=== PATIENT | male | born 1955 | race Caucasian/White ===

== ENCOUNTER 2020-12-28 07:03 | Emergency (ER) | payer BC, MEDICARE ==
[~2020-12-28] VITALS: Ht 182.9 cm; Wt 100.0 kg
[~2020-12-28 07:03] MED LIST: ATOR20TA PO; GLIM4TAB PO; INSU300I3 SQ; METO50TA6 PO; OXYC1TAB15 PO; SERT100T PO; VALS160T3 PO
--- NOTE | 2020-12-28 07:30 | PHYS DOC ---
Past Medical History Past Medical History: Diabetes-Type II, High Cholesterol, Hypertension Past Surgical History: No Surgical History Smoking Status: Former Smoker Alcohol Use: None General Adult EDM: Chief Complaint: RAPID HEART RATE HPI: HPI: Patient is a 65 year old male with past medical history hyperlipidemia hypertension diabetes and tachycardia presents with a chief complaint of tachycardia. Patient states symptoms have been ongoing since this a.m. Patient states he woke up from sleep around 430 this a.m. with an increased heart rate in the 130s and ringing in his right ear. Patient states he has passed similar history of previous. Patient denies any associated chest pain states he has occasional shortness of breath. Patient takes metoprolol for his tachycardia but did not take a dose this a.m. Patient also states he is recently under a lot of stress and questioning if his tachycardia could be related. Review of Systems: Review of Systems: Review of systems: Constitutional symptoms- No fever, no chills. Eyes- No Discharge, No Visual Loss Respiratory symptoms- Positive shortness of breath, No wheezing, No Dyspnea on Exertion Cardiovascular Systems; No chest pain, Positive Palpitations, No syncope Gastrointestinal symptoms: NO abdominal pain, no nausea, no vomiting or diarrhea. Genitourinary symptoms: No dysuria. Musculoskeletal symptoms: No back pain No extremity pain. NEUROLOGICAL Symptoms: No headache, no generalized weakness; No focal Weakness Skin: No rash. HEENT positive ringing in the ears Heart Score: C/O Chest Pain: N/A Risk Factors: Risk Factors: DM, Current or recent (<one month) smoker, HTN, HLP, family history of CAD, obesity. Risk Scores: Score 0 - 3: 2.5% MACE over next 6 weeks - Discharge Home Score 4 - 6: 20.3% MACE over next 6 weeks - Admit for Clinical Observation Score 7 - 10: 72.7% MACE over next 6 weeks - Early Invasive Strategies Allergies: Allergies: Allergies Coded Allergies Type Severity Reaction Last Updated Verified Penicillins Allergy Intermediate 05/24/18 Yes Physical Exam: PE: Constitutional: Well developed, well nourished, no acute distress, non-toxic appearance. [] HENT: Normocephalic, atraumatic, bilateral external ears normal, oropharynx moist, no oral exudates, nose normal. [] Eyes: PERRLA, EOMI, conjunctiva normal, no discharge. [] Neck: Normal range of motion, no tenderness, supple, no stridor. [] Cardiovascular:Heart rate regular rhythm, no murmur [] Lungs & Thorax: Bilateral breath sounds clear to auscultation [] Abdomen: Bowel sounds normal, soft, no tenderness, no masses, no pulsatile masses. [] Skin: Warm, dry, no erythema, no rash. [] Back: No tenderness, no CVA tenderness. [] Extremities: No tenderness, no cyanosis, no clubbing, ROM intact, no edema. [] Neurologic: Alert and oriented X 3, normal motor function, normal sensory function, no focal deficits noted. [] Psychologic: Affect normal, judgement normal, mood normal. [] EKG: EKG: [] Performed at 0728 Rate [address] elevation No ST depression No acute AL Radiology/Procedures: Radiology/Procedures: [] Impression: Site ID: [id number] EXAMINATION: XR CHEST 1V. HISTORY: 65 years Male Reason: sob COMPARISON: None. Findings: The lungs are clear. The heart size is normal. There is no effusion or pneumothorax. The mediastinum and keya appear unremarkable. Impression: Unremarkable study. Course & Med Decision Making: Course & Med Decision Making Pertinent Labs and Imaging studies reviewed. (See chart for details) [] Patient was evaluated for chief complaint. Work-up consisted of laboratory analysis radiologic imaging and EKG. Results reviewed and discussed with patient. EKG sinus tachycardia. Troponin within normal limits. Patient noted to have elevated total bilirubin--- patient will need to follow-up with primary care physician for further evaluation. Patient received a dose of labetalol 5 mg IV and 1 L of IV fluids. Patient's heart rate improved to 94 bpm post treatment. At this time I feel patient is safe for discharge. He is advised to take his current medications as previously prescribed. Patient will need to follow-up with his primary physician or career development associate. Marieon Disclaimer: Agustina Disclaimer: This electronic medical record was generated, in whole or in part, using a voice recognition dictation system. Departure Departure Impression: Primary Impression: Palpitations Disposition: HOME / SELF CARE / HOMELESS Condition: STABLE Referrals: LANDON HOOVER MD (PCP) Patient Instructions: Palpitations BEBO REID DO Dec 28, 2020 07:30
[2020-12-28 08:24] LABS: CALCIUM 8.9 mg/dL (8.5-10.1); GFR 74.5; POTASSIUM 4.2 mmol/L (3.5-5.1)
[2020-12-28 08:29] LABS: ALBUMIN 4.3 g/dL (3.4-5.0); ALBUMIN/GLOBULIN RATIO 1.4 (1.0-1.7); TOTAL BILIRUBIN 1.8 mg/dL (0.2-1.0); TOTAL PROTEIN 7.4 g/dL (6.4-8.2)
[2020-12-28] MEDS ORDERED: METOPROLOL IV PUSH 5 MG/5 ML VIAL. IVP ONE (08:30)
[2020-12-28 08:41] LABS: BASO % 0 % (0-3); EOS % 0 % (0-3); HEMATOCRIT 46.7 % (39.0-53.0); LYMPH # 0.9 x10^3/uL (1.0-4.8); LYMPH % 9 % (24-48); MEAN CORPUSCULAR HEMOGLOBIN 31 pg (25-35); MEAN CORPUSCULAR HGB CONC 36 g/dL (31-37); MEAN CORPUSCULAR VOLUME 85 fL (79-100); MONO # 0.6 x10^3/uL (0.0-1.1); MONO % 6 % (0-9); NEUT # 8.5 x10^3/uL (1.8-7.7); NEUT % 85 % (31-73); PLATELET COUNT 159 x10^3/uL (140-400); RED BLOOD COUNT 5.51 x10^6/uL (4.30-5.70); RED CELL DISTRIBUTION WIDTH 14.1 % (11.5-14.5)
--- NOTE | 2020-12-28 08:52 | RAD ---
Site ID: [id number] EXAMINATION: XR CHEST 1V. HISTORY: 65 years Male Reason: sob COMPARISON: None. Findings: The lungs are clear. The heart size is normal. There is no effusion or pneumothorax. The mediastinum and keya appear unremarkable. Impression: Unremarkable study. Electronically signed by: Uzair Walker MD (12/28/2020 8:49 AM) [id number]
[2020-12-28] MEDS ORDERED: IV NORMAL SALINE 1000ML BAG 1,000 ML IV ONE (09:45)
[2020-12-28 10:30] VITALS: BP 154/78
== END 2020-12-28 10:30 | disposition home or self-care (01) ==
LOC: ER 07:03
DX: R00.2 Palpitations (principal); H93.11 Tinnitus, right ear; R00.0 Tachycardia, unspecified; E11.9 Type 2 diabetes mellitus without complications; E78.00 Pure hypercholesterolemia, unspecified; I10 Essential (primary) hypertension; Z87.891 Personal history of nicotine dependence; Z88.0 Allergy status to penicillin
CPT/HCPCS: 36415; 71045; 80053; 83880; 84484; 85025; 93005; 96361; 96374; 99285; J3490; J7030

== ENCOUNTER → 2021-02-19 | Outpatient (CLI) | payer MEDICARE ==
--- NOTE | 2021-02-19 16:40 | CARD ---
MR#: [id number] Date of Study: 02/19/2021 Ordering Physician: KIARRA MEIER, Referring Physician: KIARRA MEIER, Tech: Sarah Ramirez [facility] APPROVED REPORT EXAM: Two-dimensional and M-mode echocardiogram with Doppler and color Doppler. Other Information Quality : AverageHR: 81bpm Rhythm : NSR INDICATION Palpitations RISK FACTORS Hypertension Hyperlipidemia Diabetes 2D DIMENSIONS RVDd3.2 (2.9-3.5cm)Left Atrium(2D)3.6 (1.6-4.0cm) IVSd1.2 (0.7-1.1cm)Aortic Root(2D)3.7 (2.0-3.7cm) LVDd4.2 (3.9-5.9cm)LVOT Diameter2.3 (1.8-2.4cm) PWd1.2 (0.7-1.1cm)LVDs3.0 (2.5-4.0cm) FS (%) 28.5 %SV44.5 ml Aortic Valve AoV Peak Paco.132.4cm/sAoV VTI30.8cm AO Peak GR.7.0mmHgLVOT Peak Paco.88.9cm/s AO Mean GR.3mmHgAVA (VMAX)2.88cm2 Mitral Valve MV E Ttoosvjv52.4cm/sMV DECEL [id number] MV A Qurctere54.5cm/sE/A Ratio1.3 Pulmonary Valve PV Peak Llmsfrgw847.0cm/s LEFT VENTRICLE The left ventricle is normal size. There is mild concentric left ventricular hypertrophy. The left ve ntricular systolic function is normal. LV ejection fraction is 55 to 60%. There is normal LV segment al wall motion. The left ventricular diastolic function and filling is normal for age. RIGHT VENTRICLE The right ventricle is normal size. There is normal right ventricular wall thickness. The right ventr icular systolic function is normal. ATRIA The left atrium size is normal. The right atrium size is normal. The interatrial septum is intact wit h no evidence for an atrial septal defect or patent foramen ovale as noted on 2-D or Doppler imaging. AORTIC VALVE The aortic valve is normal in structure and function. Doppler and Color Flow revealed no significant aortic regurgitation. There is no significant aortic valvular stenosis. MITRAL VALVE Systolic bowing of the anterior mitral valve leaflet without prolapse. There is no evidence of mitral valve prolapse. There is no mitral valve stenosis. Doppler and Color Flow revealed no mitral valve r egurgitation noted. TRICUSPID VALVE The tricuspid valve is normal in structure and function. Doppler and Color Flow revealed no tricuspid valve regurgitation noted. There is no tricuspid valve stenosis. PULMONIC VALVE The pulmonary valve is normal in structure and function. Doppler and Color Flow revealed no pulmonic valvular regurgitation. GREAT VESSELS The aortic root is normal in size. The ascending aorta is normal in size. The IVC is normal in size a nd collapses >50% with inspiration. PERICARDIAL EFFUSION There is no evidence of significant pericardial effusion. Critical Notification Critical Value: No <Conclusion> The left ventricle is normal size. The left ventricular systolic function is normal. LV ejection fraction is 55 to 60%. There is mild concentric left ventricular hypertrophy. Doppler and Color Flow revealed no significant aortic regurgitation. There is no significant aortic valvular stenosis. Doppler and Color Flow revealed no mitral valve regurgitation noted. Doppler and Color Flow revealed no tricuspid valve regurgitation noted. Signed by : Crow Prescott MD Electronically Approved : 02/19/2021 16:39:55
== END ==
LOC: ECHO 14:36
PROVIDERS: ATTEND Internal Medicine Cardiovascular Disease
DX: I51.7 Cardiomegaly (principal); I10 Essential (primary) hypertension
CPT/HCPCS: 93306